=== PATIENT | male | born 1955 | race Caucasian/White ===

== ENCOUNTER 2019-08-12 18:33 | Emergency (ER) | payer MEDICAID ==
[~2019-08-12] VITALS: Ht 172.7 cm; Wt 62.7 kg
--- NOTE | 2019-08-12 20:27 | NUR ---
Request for records faxed to [facility]
[2019-08-12 21:49] VITALS: BP 112/68
== END 2019-08-12 21:54 | disposition home or self-care (01) ==
LOC: ER 18:34
DX: R19.00 Intra-abdominal and pelvic swelling, mass and lump, unspecified site (principal)
CPT/HCPCS: 99281